=== PATIENT | female | born 1990 | race Two or more races ===

== ENCOUNTER 2021-10-05 12:06 | Emergency (ER) | payer OTHER ==
[2021-10-05 12:30] VITALS: BP 135/92; PULSE 105; TEMP 98; BMI 30.4
[2021-10-05] MEDS ORDERED: CEPHALEXIN MONOHYDRATE 500 MG CAPSULE (UD) PO ONE (13:38)
[2021-10-05] MEDS ORDERED: CEPHALEXIN MONOHYDRATE 500 MG CAPSULE (UD) ONE (13:41)
== END 2021-10-05 14:06 | disposition home or self-care (01) ==
LOC: JERFT 12:06
DX: L03.011 Cellulitis of right finger (principal)
CPT/HCPCS: 73130-TC-RT-FY; 99283-25

== ENCOUNTER → 2025-03-28 | Day surgery (SDC) | payer OTHER | END | disposition home or self-care (01) | LOC: JMAMMO-SUR 10:43 | PROVIDERS: ATTEND Family Medicine | PROC: 0H9T3ZX Drainage of Right Breast, Percutaneous Approach, Diagnostic (ICD-10-PCS; principal; 2025-03-28) | DX: D24.1 Benign neoplasm of right breast (principal) | CPT/HCPCS: 19083; 76942-TC; 87899; A4648 ==